=== PATIENT | male | born 1950 | race Hispanic/Latino ===

== ENCOUNTER 2018-12-09 07:38 | Outpatient (CLI) | payer BC ==
--- NOTE | 2018-12-09 09:08 | Mammography Report ---
BILATERAL DIGITAL DIAGNOSTIC MAMMOGRAM with CAD and LEFT BREAST ULTRASOUND: 12/09/18 CLINICAL: 68-year-old male with a palpable left breast lump . COMPARISON:None. FINDINGS: The breasts are almost entirely fatty with minimal bilateral subareolar fibroglandular densities. An irregular 1.3 cm mass at 2 o'clock correlates with a palpable lump. There is mild architectural distortion. No calcifications. The right breast is negative. Ultrasound of the left breast (including all four quadrants and the retroareolar area) was performed. An oval irregular solid hypoechoic mass at 2 o'clock 2 cm from the nipple measures 1.0 x 0.8 x 1.0 cm and correlates with the mammographic mass. No other mass and no cyst of the breast. Ultrasound of the left axilla demonstrated no suspicious lymph nodes. IMPRESSION: A suspicious 1 cm left breast mass at 2 o'clock 2 cm from the nipple.Recommend ultrasound-guided needle core biopsy of the left breast. BI-RADS CATEGORY: 5 - - Highly Suggestive of Malignancy I discussed the findings and the recommendation for needle core biopsy of the left breast with the patient at the time of the examination. COMMENT: Patient follow-up letters are generated by our [employer] application.
== END 2018-12-09 07:39 | disposition home or self-care (01) ==
LOC: US 07:38
PROVIDERS: ATTEND Internal Medicine
DX: N63.20 Unspecified lump in the left breast, unspecified quadrant (principal)
CPT/HCPCS: 77066

== ENCOUNTER 2018-12-22 15:00 | Outpatient (CLI) | payer BC, OTHER | END 2018-12-22 15:01 | disposition home or self-care (01) | LOC: LABHHL 15:00 | PROVIDERS: ATTEND Surgery | DX: C50.922 Malignant neoplasm of unspecified site of left male breast (principal) | CPT/HCPCS: 88305; 88341; 88342 ==

== ENCOUNTER 2018-12-30 10:40 | Outpatient (CLI) | payer BC ==
--- NOTE | 2018-12-30 13:20 | Ultrasound Report ---
ULTRASOUND GUIDED NEEDLE CORE BIOPSY OF A LEFT AXILLARY LYMPH NODE WITH CLIP PLACEMENT : 12/30/18 10:40:00 CLINICAL: Newly diagnosed left breast cancer. COMPARISON :12/09/18 FINDINGS: The procedure was explained to the patient and informed consent was obtained. Ultrasound demonstrated an enlarged left axillary lymph node measuring 2.3 cm. It appears to correlate with a lymph node described by Dr. Avelar. The skin in the axilla was prepped with Betadine and anesthetized with 1% lidocaine. Ultrasound guided needle core biopsy of the lymph node was performed through a small dermatotomy using 2% lidocaine with epinephrine for deep anesthesia and a 18-gauge Achieve biopsy device. 2 samples were obtained and placed in formalin. A clip was deployed within the lymph node. Hemostasis was achieved with minimal effort and a sterile dressing was applied. The patient tolerated the procedure well and there were no apparent complications. He was discharged in good condition and was given instructions for wound care and followup. IMPRESSION: Uncomplicated ultrasound-guided needle core biopsy of a left lymph node with clip placement.
== END 2018-12-30 10:41 | disposition home or self-care (01) ==
LOC: SPVWC 10:40
PROVIDERS: ATTEND Surgery
DX: D36.0 Benign neoplasm of lymph nodes (principal); C50.922 Malignant neoplasm of unspecified site of left male breast
CPT/HCPCS: 38505; 76942; 88305; 88342; A4648

== ENCOUNTER 2019-02-03 06:42 | Observation (INO) | payer BC, MEDICARE ==
--- NOTE | 2019-01-31 15:11 | Anesthesia Consultation ---
Anesthesia Consult and Med Hx Date of service: 01/31/19 - Airway Anesthetic Teeth Evaluation: Good ROM Head & Neck: Adequate Mental/Hyoid Distance: Adequate Mallampati Class: Class I Intubation Access Assessment: Good - Pulmonary Exam CTA: Yes - Cardiac Exam Cardiac Exam: RRR - Pre-Operative Health Status ASA Pre-Surgery Classification: ASA2 Proposed Anesthetic Plan: General Nerve Block: PEC - Pulmonary Hx Smoking: Yes (STOPPED X 8 YRS) Hx Respiratory Symptoms: No Hx Sleep Apnea: No (CONNOR PRE SCREEN HIGH RISK) - Cardiovascular System Hx Hypertension: No Hx Heart Attack/AMI: No Hx Percutaneous Transluminal Coronary Angioplasty (PTCA): No Hx Cardia Arrhythmia: No - Central Nervous System Hx Seizures: No CVA: No Hx Psychiatric Problems: Yes (anxiety/depression) - Gastrointestinal Hx Gastroesophageal Reflux Disease: No - Endocrine Hx Renal Disease: No Hx Liver Disease: No Hx Insulin Dependent Diabetes: No Hx Non-Insulin Dependent Diabetes: No Hx Thyroid Disease: No - Other Systems Hx Alcohol Use: Yes (WINE QD) Hx Cancer: Yes (breast ca) Hx Obesity: No - Additional Comments Anesthesia Medical History Comments: Hx PONV with prior anesthetics, including MAC. Medical clearance on chart.
[2019-01-31 15:36] LABS: Basophils % (Auto) 0.8 % (0.0-1.8); Eosinophils # (Auto) 0.3 K/mm3 (0.0-0.4); Eosinophils % (Auto) 5.3 % (0.0-4.3); Hematocrit 45.3 % (35.5-45.6); Lymphocytes # (Auto) 1.8 K/mm3 (1.2-5.4); Lymphocytes % (Auto) 32.6 % (13.4-35.0); Mean Corpuscular HGB Conc 33 % (32-34); Mean Corpuscular Volume 91 fl (84-94); Monocytes # (Auto) 0.3 K/mm3 (0.0-0.8); Monocytes % (Auto) 5.1 % (0.0-7.3); Platelet Count 179 K/mm3 (140-440); Red Blood Count 4.96 M/mm3 (3.65-5.03); Red Cell Distribution Width 13.9 % (13.2-15.2)
[2019-01-31 15:50] LABS: BUN/Creatinine Ratio 22; Blood Urea Nitrogen 22 mg/dL (9-20); Calcium 8.1 mg/dL (8.4-10.2); Hemolysis Index 13
[~2019-02-03 06:42] MED LIST: ANCEF/STERILE WATER 2 GM/20 ML IV NR; LACTATED RINGERS 1,000 ML IV SCH; NEURONTIN PO NR; SUBLIMAZE IV PRN; VERSED IV NR
[2019-02-03] MEDS ORDERED: DILAUDID ONE (07:24)
[2019-02-03] MEDS ORDERED: DIPRIVAN 10 MG/ML IV ONE (07:24)
[2019-02-03] MEDS ORDERED: XYLOCAINE MPF 2% ONE (07:25)
--- NOTE | 2019-02-03 07:40 | Anesthesia Day of Surgery ---
Anesthesia Day of Surgery - Day of Surgery Patient Examined: Yes Patient H&P Reviewed: Yes Patient is NPO: Yes
[2019-02-03] MEDS ORDERED: MARCAINE-EPI 0.25%-1:200,000 INFILTRATI ONE (07:48)
[2019-02-03] MEDS ORDERED: NACL P/F VIAL (10 ML) 10 ML ONE (07:56)
[2019-02-03] MEDS ORDERED: METHYLENE BLUE ONE (07:57)
--- NOTE | 2019-02-03 08:28 | Short Stay Summary ---
Short Stay Documentation Date of service: 02/03/19 - History H&P: obtained from office - Allergies and Medications Current Medications: Allergies No Known Allergies Allergy (Verified 01/30/19 15:14) Home Medications Medication Instructions Recorded Confirmed Last Taken Type Aspirin [Adult Aspirin] 81 mg PO DAILY 01/30/19 02/03/19 01/27/19 09:00 History Bupropion HCl [Wellbutrin XL] 300 mg PO QAM 01/30/19 02/03/19 02/03/19 05:00 History Cinnamon Bark [Cinnamon] 500 mg PO DAILY 01/30/19 02/03/19 Unknown History Glucos Sul 2Kcl/MSM/Chond/C/Mn 1 each PO DAILY 01/30/19 02/03/19 Unknown History [Glucosamine Chondroitin Cap] [place]-3S/Dha/Epa/Fish Oil [Fish 1 each PO DAILY 01/30/19 02/03/[address] 1,000 mg Softgel] Ubidecarenone [Coenzyme Q10] 10 mg PO BID 01/30/19 02/03/19 02/02/19 09:00 History Vitamin B Complex [Super B-50 1 each PO DAILY 01/30/19 02/03/19 Unknown History Complex] Active Medications Cefazolin Sodium (Ancef/Sterile Water 2 Gm/20 Ml) 2 gm IV PREOP NR Stop: 02/03/19 23:59 Celecoxib (Celebrex) 200 mg PO PREOP NR Stop: 02/03/19 23:59 Last Admin: 02/03/19 07:20 Dose: 200 mg Documented by: Fentanyl (Sublimaze) 100 mcg IV ONCE PRN PRN Reason: sedation for nerve block Gabapentin (Neurontin) 300 mg PO PREOP NR Stop: 02/03/19 23:59 Last Admin: 02/03/19 07:20 Dose: 300 mg Documented by: Lactated Ringer's (Lactated Ringers) 1,000 mls @ 100 mls/hr IV DIRECT MATEUS Last Admin: 02/03/19 07:20 Dose: 100 mls/hr Documented by: Midazolam HCl (Versed) 2 mg IV PREOP NR Stop: 02/03/19 23:59 - Brief post op/procedure progress note Date of procedure: 02/03/19 Pre-op diagnosis: Left breast cancer of the upper outer quadrant Post-op diagnosis: same Procedure: Right total mastectomy; left total mastectomy with SLNB Anesthesia: GETA Findings: Bilateral mastectomy, left SLNB x7 (first specimen with 5 SLNs) and negative for malignancy Surgeon: ABRAM FREY Backfiller: MICKEY BOYER Estimated blood loss: 50-100ml Pathology: list (bilateral mastectomy; x SLNB) Specimen disposition: to lab Condition: stable - Disposition Condition at discharge: Good Disposition: DC/TX-02 SHRT-TRM GEN HOSP IP Short Stay Discharge Plan Activity: other (no heavy lifting) Diet: regular Wound: keep clean and dry (may shower in 48 hours; no baths) Follow up with: THEODORA EPPERSON JR, MD [Primary Care Provider] - 7 Days ABRAM FREY MD [Staff Physician] - 7 Days
[2019-02-03] MEDS ORDERED: SODIUM CHLORIDE FLUSH SYRINGE 10 ML IV PRN (08:32)
[2019-02-03] MEDS ORDERED: TYLENOL PO PRN (08:32)
[2019-02-03] MEDS ORDERED: ZOFRAN IV PRN (08:32)
[2019-02-03] MEDS ORDERED: BENADRYL PO PRN (08:32)
[2019-02-03] MEDS ORDERED: PERCOCET 5/325 PO PRN (08:32)
[2019-02-03] MEDS ORDERED: REGLAN PO PRN (08:32)
--- NOTE | 2019-02-03 08:32 | Operative Report ---
Operative Report Operative Report: Operative Report: Date of Service: February 03, 2019 Preoperative diagnosis: Left breast cancer of the upper outer quadrant Postoperative diagnosis: Same Procedure: Left total mastectomy with sentinel lymph node biopsy and right total mastectomy Surgeon: Susy Avelar M.D. Workers' Compensation Magistrate: Randi Hart M.D. Anesthesia: Gen. Findings: Left breast clip present within left total mastectomy; x7 SLNs and negative for malignancy. Complications: None Drains:19 [place] JAYCOB drains bilaterally Estimated blood loss: 50-100 cc Disposition: PACU in good condition Indications for operative procedure: This is a 68-year-old gentleman BRCA2 positive gene mutation with newly diagnosed stage I/II left breast cancer of the upper inner quadrant, IDCA grade 3 cT1c/2N0M0 ER/SC positive. Recommendations were to proceed with a left total mastectomy with SLNB and possible ALND and prophylactic right total mastectomy given BRCA2 positive gene mutation and increase risk for breast cancer and increase risk for recurrent breast cancer. He wished to proceed with a prophylactic right mastectomy and left total mastectomy. He wished to proceed with the above procedure. Procedure in detail: Anesthia placed bilateral pectoral muscle blocks. The patient was taken to the operating room and was placed supine. Gen. anesthesia was administered. The left nipple was injected with radioisotope and 1 cc of methylene blue. Bilateral chest and axillas were prepped and draped in the normal sterile operative fashion. Timeout was performed. Typical mastectomy incision markings were made. Attention was taken toward the right breast first. First began raising of the superior flap to the level of the clavicle superiorly and posteriorly to the pectoralis muscle. Followed by raising of the medial flap to the level of the sternum and posteriorly to the pectoralis muscle. Followed by raising of the lateral flap to the level of the latissimus dorsi muscle and taken down posteriorly. Followed by raising of the inferior flap to the level of the inframammary fold taken posterior to the pectoralis muscle. The mastectomy/breast was removed from the pectoralis muscle without incident. The specimen was appropriately marked and sent to pathology. Hemostasis was obtained. The port was noted and unharmed. A 19 Fr drain was placed. The subcutaneous tissues were approximated and closed using interrupted 3-0 Vicryl and the skin closed using a 4-0 running Monocryl and dermabond. Later the skin flap edges were noted to be ischemic and resection of skin of concern was performed and the subcutaneous tissues and then skin closed again-patient with a significant tobacco product usage. Attention was taken towards the left breast. A gamma probe was inserted into the axilla to identify the sentinel lymph node location with uptake noted. A skin incision was made with a 10 blade knife and dissection taken down to the subcutaneous tissues. First began raising of the superior flap to the level of the clavicle superiorly and posteriorly to the pectoralis muscle. Followed by raising of the medial flap to the level of the sternum and posteriorly to the pectoralis muscle. Followed by raising of the lateral flap to the level of the latissimus dorsi muscle and taken down posteriorly. The gamma probe was inserted into the axilla, the axillary fascia was opened and 7 sentinel lymph nodes were identified (first SLN with 5 lymph nodes present) and sent to pathology. All remaining counts were less than 10% of the highest count lymph node. Pathology with findings with all sentinel lymph nodes negative for malignancy noted on frozen section. Then proceeded with raising of the inferior flap to the level of the inframammary fold taken posterior to the pectoralis muscle. The mastectomy/breast was removed from the pectoralis muscle without incident. The specimen was appropriately marked and sent to radiology with findings of breast clip present and sent to pathology. Hemostasis was obtained. Skin flap edges were trimmed given concerns of skin perfustion. The subcutaneous tissues were approximated and closed using interrupted 3-0 Vicryl and the skin closed using a 4-0 running Monocryl and dermabond. Nitropaste was then applied to bilateral chest incisions to increase skin perfusion. He tolerated surgery very well and was awaken from anesthesia without any complications and then transported to PACU in good condition.
[2019-02-03] MEDS ORDERED: MORPHINE IV PRN (08:37)
[2019-02-03] MEDS ORDERED: LACTATED RINGERS 1,000 ML IV SCH (09:00)
[2019-02-03] MEDS ORDERED: TRANSDERM-SCOP TD ONE (09:11)
[2019-02-03] MEDS ORDERED: QUELICIN ONE (09:34)
[2019-02-03] MEDS ORDERED: ZEMURON IV ONE (09:35)
[2019-02-03] MEDS ORDERED: WATER FOR INJ Sterile (PF) IM ONE (09:55)
[2019-02-03] MEDS ORDERED: METHYLENE BLUE IV ONE (09:55)
[2019-02-03] MEDS ORDERED: WATER FOR IRRIG STERILE IR ONE ×2 (09:56)
[2019-02-03] MEDS ORDERED: COLACE PO SCH (10:00)
[2019-02-03] MEDS ORDERED: LACTATED RINGERS 1,000 ML ONE (12:32)
[2019-02-03] MEDS ORDERED: ANCEF ONE (13:18)
[2019-02-03] MEDS ORDERED: NITRO-BID 2% TP ONE ×2 (13:19→13:50)
[2019-02-03] MEDS ORDERED: ZOFRAN ONE (14:01)
--- NOTE | 2019-02-03 19:09 | Post Anesthesia Evaluation ---
- Post Anesthesia Evaluation Patient Participated: Yes Airway Patent: Yes Stable Respiratory Function: Yes Nausea/Vomiting: No Temp > 96.8F: Yes Pain Manageable: Yes Adequeate Hydration: Yes Anesthesia Complications: No Other Comments: Relative hypoxia in PACU which resolved with incentive spirometry. No complaint of pain.
[2019-02-04 08:13] VITALS: BP 121/52
--- NOTE | 2019-02-04 08:21 | Progress Note ---
Assessment and Plan This is a 68 year old gentleman with newly diagnosed left breast cancer of the upper outer quadrant and BRCA2 positive gene mutation, Stage i/II, POD#1 bilateral total mastectomy with left SLNB. 1. No acute events overnight, pain in good control. 2. Bilateral chest incisions with slight decrease skin perfusion bilaterally, skin edges were resected in the OR yesterday given some concerns for perfusion. Patient with a significant tobacco product usage and discussed today the importance of no smoking. Nitropaste applied yesterday and will apply for 48 hours. 3. JAYCOB drain education. 4. OOB to hallway. 5. D/C planning for today, patient will followup on Wednesday. Subjective Date of service: 02/04/19 Principal diagnosis: Left breast cancer, BRCA2 positive gene mutation Interval history: POD# 1 right total mastectomy; left total mastectomy with SLNB Objective - Constitutional Vitals: Vital Signs - 12hr 02/04/19 02/04/19 02/04/19 00:23 05:11 05:55 Temperature 97.2 F L 98.4 F Pulse Rate 69 77 Respiratory 16 18 18 Rate Blood Pressure 121/61 118/62 O2 Sat by Pulse 96 96 Oximetry 02/04/19 08:02 Temperature 97.7 F Pulse Rate 64 Respiratory 18 Rate Blood Pressure 121/52 O2 Sat by Pulse 94 Oximetry General appearance: Present: no acute distress - EENT Eyes: PERRL, EOM intact ENT: hearing intact, clear oral mucosa, dentition normal Ears: bilateral: normal - Neck Neck: supple, normal ROM - Respiratory Respiratory effort: normal - Breasts Breasts: other (bilateral chest incisions c/d/i; slight decrease skin perfusion at some edges-will apply nitropaste and no smoking discussed; no hematoma; JAYCOB drains to bulb suction) - Cardiovascular Rhythm: regular Extremities: no ischemia, pulses intact, pulses symmetrical, No edema, normal temperature, normal color, Full ROM - Gastrointestinal General gastrointestinal: Present: soft, non-tender, non-distended Rectal Exam: deferred - Genitourinary Male genitourinary: deferred - Integumentary Integumentary: clear, warm, dry - Musculoskeletal Musculoskeletal: strength equal bilaterally - Neurologic Neurologic: CNII-XII intact, moves all extremities - Psychiatric Psychiatric: appropriate mood/affect, intact judgment & insight, memory intact, cooperative - Labs CBC & Chem 7: 01/31/19 12:15 01/31/19 12:15 Medications & Allergies - Medications Allergies/Adverse Reactions: Allergies No Known Allergies Allergy (Verified 01/30/19 15:14) Home Medications: Home Medications Medication Instructions Recorded Confirmed Last Taken Type Aspirin [Adult Aspirin] 81 mg PO DAILY 01/30/19 02/03/19 01/27/19 09:00 History Bupropion HCl [Wellbutrin XL] 300 mg PO QAM 01/30/19 02/03/19 02/03/19 05:00 History Cinnamon Bark [Cinnamon] 500 mg PO DAILY 01/30/19 02/03/19 Unknown History Glucos Sul 2Kcl/MSM/Chond/C/Mn 1 each PO DAILY 01/30/19 02/03/19 Unknown History [Glucosamine Chondroitin Cap] [place]-3S/Dha/Epa/Fish Oil [Fish 1 each PO DAILY 01/30/19 02/03/[address] 1,000 mg Softgel] Ubidecarenone [Coenzyme Q10] 10 mg PO BID 01/30/19 02/03/19 02/02/19 09:00 History Vitamin B Complex [Super B-50 1 each PO DAILY 01/30/19 02/03/19 Unknown History Complex] oxyCODONE /ACETAMINOPHEN [Percocet 1 tab PO Q6HR PRN #30 tablet 02/04/19 Unknown Rx 5/325] Active Medications: Generic Name Dose Route Start Last Admin Trade Name Freq PRN Reason Stop Dose Admin Acetaminophen 650 mg 02/03/19 08:32 Tylenol PO Q6H PRN Pain MILD(1-3)/Fever >100.5/LUU Diphenhydramine HCl 25 mg 02/03/19 08:32 Benadryl PO Q8H PRN Itching Docusate Sodium 100 mg 02/03/19 10:00 02/03/19 22:51 Colace PO 100 mg BID MATEUS Administration Fentanyl 100 mcg 02/03/19 06:00 02/03/19 07:46 Sublimaze IV 100 mcg ONCE PRN Administration sedation for nerve block Lactated Ringer's 1,000 mls @ 125 mls/hr 02/03/19 09:00 Lactated Ringers IV DIRECT MATEUS Metoclopramide HCl 10 mg 02/03/19 08:32 Reglan PO Q6H PRN Nausea And Vomiting Morphine Sulfate 2 mg 02/03/19 08:37 Morphine IV Q4H PRN Pain, Moderate (4-6) Nitroglycerin 0.5 inch 02/04/19 09:00 Nitro-Bid 2% TP 02/04/19 12:01 [facility] Protocol Ondansetron HCl 4 mg 02/03/19 08:32 Zofran IV Q8H PRN N/V unrelieved by Ayden Oxycodone/Acetaminophen 1 tab 02/03/19 08:32 02/04/19 05:55 Percocet 5/325 PO 1 tab Q6H PRN Administration Pain, Moderate (4-6) Sodium Chloride 10 ml 02/03/19 08:32 Sodium Chloride Flush Syringe 10 Ml IV PRN PRN LINE FLUSH
[2019-02-04] MEDS ORDERED: NITRO-BID 2% TP SCH (09:00)
--- NOTE | 2019-02-06 09:07 | Mammography Report ---
BREAST SPECIMEN RADIOGRAPH LEFT HISTORY: Left breast cancer. COMPARISON: 12/22/2018 FINDINGS/IMPRESSION: The submitted radiograph of the entire breast demonstrate(s) the presence of a biopsy marker as expec kendra. Signer Name: Jose Davidson MD Signed: 02/06/2019 9:03 AM Workstation Name: [id number]
== END 2019-02-04 14:20 | disposition home or self-care (01) ==
LOC: OR 06:42 → 3B-SURG 08:32
PROVIDERS: ADMIT Surgery; ATTEND Surgery
DX: C50.422 Malignant neoplasm of upper-outer quadrant of left male breast (principal)
CPT/HCPCS: 19303; 36415; 76098; 78800; 80048; 85025; 88307; 88331; 88342; A9541; G0378; J0330; J0690; J1170; J2250; J2405; J2704; J3010; J7120; Q9968; 88333

== ENCOUNTER 2019-03-16 09:03 | Outpatient (CLI) | payer BC, MEDICARE ==
[2019-03-16 10:38] LABS: Blood Urea Nitrogen 17 mg/dL (9-20)
--- NOTE | 2019-03-16 13:15 | Cat Scan Report ---
CT CHEST WITH CONTRAST HISTORY: Newly diagnosed left breast cancer. Status post recent left mastectomy and left sentinel lym ph node biopsy. COMPARISON: None TECHNIQUE: Routine chest CT exam performed following intravenous contrast administration.Note: All C T scans at this location are performed using CT dose reduction employed for ALARA by means of automat ed exposure control. CONTRAST: 100 mL Omnipaque 300. FINDINGS: CT CHEST: Heart and Pericardium: No significant abnormality. Vasculature: No significant abnormality. Lymphatics: No lymphadenopathy. A small postop fluid collection in the left axilla. Lungs: No significant abnormality. No pulmonary nodule or mass. Trachea and Bronchi: No significant abnormality. Osseous Structures: No significant abnormality. Additional findings: Status post left mastectomy. A postop seroma measures 9.2 x 1.0 x 7.2 cm. IMPRESSION: 1. No evidence of metastasis. 2. Postoperative changes in the left chest wall and left axilla Signer Name: Jose Davidson MD Signed: 03/16/2019 1:11 PM Workstation Name: [id number]
--- NOTE | 2019-03-16 13:22 | Nuclear Medicine Report ---
WHOLE BODY BONE SCAN HISTORY: Newly diagnosed left breast cancer status post recent left mastectomy and left sentinel lymp h node biopsy. COMPARISON: A CT chest, abdomen and pelvis from today is available for comparison. No previous bone s can. TECHNIQUE: Following administration of Tc-99m MDP, static whole body anterior and posterior delayed p hase images were acquired. RADIOPHARMACEUTICAL: 26.3 mCi Tc-99m MDP. FINDINGS: No significantly abnormal uptake. Normal physiologic background activity. No finding to correlate with a 5 mm lucent lesion in the L2 vertebral body on CT. Additional Findings: None. IMPRESSION: 1. No significant abnormality.. 2. Recommend CT PET to evaluate the L2 vertebral body lesion identified by CT. Signer Name: Jose Davidson MD Signed: 03/16/2019 1:18 PM Workstation Name: [id number]
--- NOTE | 2019-03-16 15:48 | Cat Scan Report ---
CT ABDOMEN AND PELVIS WITH CONTRAST HISTORY: Malignant neoplasm of unspecified site of unspecified male breast. Status post left mastecto my and left sentinel lymph node biopsy. COMPARISON: None. TECHNIQUE: CT images of the abdomen and pelvis were obtained following administration of intravenous contrast. Note: All CT scans at this location are performed using CT dose reduction employed for TIKA Rios by means of automated exposure control. CONTRAST: 100 ml of Omnipaque 300. Oral contrast was also given. FINDINGS: CT ABDOMEN: Lung Bases: Clear Liver: No significant abnormality. 9 mm left benign hepatic cysts. Biliary: No significant abnormality. Spleen: No significant abnormality. Unenlarged. Pancreas: No significant abnormality. Adrenals: No significant abnormality. Kidneys: No significant abnormality. Lymphatics: No lymphadenopathy. Vasculature: No significant abnormality. Bowel/Peritoneum: Nonobstructive bowel. Sigmoid diverticulosis without mesocolonic fat stranding. No free air. No free fluid. Appendix not visualized. No pericecal inflammation. CT PELVIS: : No significant abnormality. Sigmoid diverticulosis but no signs of diverticulitis. Osseous Structures: A 5 mm lucent lesion of the L2 vertebral body. A 4.0 x 3.9 x 2.3 cm lucent lesion of the left iliac bone with a sclerotic rim. It is located just superior to the left acetabulum. Additional Findings: None IMPRESSION: 1. No evidence of hepatic or denny metastasis. 2. A suspicious 5 mm lucent lesion of the L2 vertebral body. Recommend CT PET for further evaluation. 3. A benign 4 cm bone cyst of the left iliac bone. Signer Name: Jose Davidson MD Signed: 03/16/2019 3:43 PM Workstation Name: [id number]
== END 2019-03-16 09:04 | disposition home or self-care (01) ==
LOC: NM 09:03
PROVIDERS: ATTEND Internal Medicine Hematology
DX: C50.929 Malignant neoplasm of unspecified site of unspecified male breast (principal); Z90.12 Acquired absence of left breast and nipple; Z98.890 Other specified postprocedural states; K76.89 Other specified diseases of liver; K57.30 Diverticulosis of large intestine without perforation or abscess without bleeding; M96.843 Postprocedural seroma of a musculoskeletal structure following other procedure; R93.89 Abnormal findings on diagnostic imaging of other specified body structures
CPT/HCPCS: 36415; 71260; 74177; 78306; 82565; 84520; Q9967

== ENCOUNTER 2020-08-27 08:52 | Outpatient (CLI) | payer MEDICARE ==
--- NOTE | 2020-08-27 09:43 | Ultrasound Report ---
ULTRASOUND BREAST/CHEST LEFT LIMITED, 08/27/2020 CLINICAL INFORMATION / INDICATION: PERSONAL HX OF BREAST CA. Left breast/chest wall lump/puffiness. TECHNIQUE: Targeted ultrasound evaluation was performed of the area of interest. COMPARISON: 12/09/18. FINDINGS: The patient has a history of bilateral mastectomy and previous left breast cancer. I see no evidence of a mass, posterior shadowing or other significant abnormality. IMPRESSION: No sonographic evidence of malignancy. Follow up recommendation: Clinical exam BI-RADS Category 2: Benign. A normal or "negative" report should not preclude biopsy or follow-up of a clinically suspicious find ing. Signer Name: Harvinder Hunter MD Signed: 08/27/2020 9:39 AM Workstation Name: [id number]
== END 2020-08-27 08:53 | disposition home or self-care (01) ==
LOC: SPVWC 08:52
PROVIDERS: ATTEND Surgery
DX: R92.8 Other abnormal and inconclusive findings on diagnostic imaging of breast (principal); Z85.3 Personal history of malignant neoplasm of breast
CPT/HCPCS: 76604